=== PATIENT | female | born 1990 | race Caucasian/White ===

== ENCOUNTER 2016-11-13 08:31 | Day surgery (SDC) | payer BC ==
[~2016-11-13] VITALS: Ht 157.5 cm; Wt 72.3 kg
[2016-11-13 09:13] VITALS: BP 114/67
[2016-11-13 09:36] LABS: HEMATOCRIT 41.4 % (36.0-46.0); MCH 31.8 PG (29.0-34.0); MCHC 33.8 G/DL (30.0-36.0); MCV 94.1 FL (83-99); MEAN PLAT.VOLUME 10.1 uM^3 (9.5-12.4); PLATELET COUNT 234 K/uL (156-360); RBC DIS.WIDTH-CV 12.5 % (11.8-14.6); RBC DIS.WIDTH-SD 43.6 % (39-53); WHITE BLOOD COUNT 6.4 K/uL (4.1-10.2)
[2016-11-13] MEDS ORDERED: VICODIN 5-3001 EACH PO (11:27)
[2016-11-13] MEDS ORDERED: MOTRIN800 MG PO (11:27)
[2016-11-13 12:53] VITALS: BP 117/85
[2016-11-13 13:41] VITALS: BP 113/69
== END 2016-11-13 13:44 | disposition home or self-care (01) ==
LOC: SDC 08:31
PROVIDERS: Obstetrics & Gynecology
PROC: 10D17ZZ Extraction of Products of Conception, Retained, Via Natural or Artificial Opening (ICD-10-PCS; principal; 2016-11-13)
DX: O02.1 Missed abortion (principal)
CPT/HCPCS: 85027; 86900; 86901; 88305; J1885; J2250; J3010

== ENCOUNTER 2017-09-18 10:40 | Outpatient (CLI) | payer OTHER ==
[~2017-09-18] VITALS: Ht 157.5 cm; Wt 94.8 kg
[~2017-09-18 10:40] MED LIST: MOTRIN800 MG PO; VICODIN 5-3001 EACH PO
[2017-09-18 10:59] VITALS: BP 122/68
[2017-09-18] MEDS ORDERED: PRENATAL TABLE1 EAC3 PO (11:13)
== END 2017-09-18 12:03 | disposition home or self-care (01) ==
LOC: LDRP-OP 10:40 → 2WEST 10:41 → LDRP-OP 10-24 10:17
DX: O47.1 False labor at or after 37 completed weeks of gestation (principal); Z3A.39 39 weeks gestation of pregnancy
CPT/HCPCS: 59025; G0378

== ENCOUNTER 2017-09-21 04:13 | Outpatient (CLI) | payer OTHER ==
[~2017-09-21 04:13] MED LIST changes: +PRENATAL TABLE1 EAC3 PO
[2017-09-21 04:15] VITALS: BP 114/67
[2017-09-21 06:17] VITALS: BP 124/71
[2017-09-21 06:58] VITALS: BP 122/68
[2017-09-21 08:46] VITALS: BP 123/77
[2017-09-22] MEDS ORDERED: IBUPROFEN800 MG PO (10:48)
== END 2017-09-21 09:53 | disposition home or self-care (01) ==
LOC: LDRP-OP 04:13 → 2WEST 04:14 → LDRP-OP 10-24 12:14
DX: O47.1 False labor at or after 37 completed weeks of gestation (principal); Z3A.39 39 weeks gestation of pregnancy
CPT/HCPCS: 59025; G0378

== ENCOUNTER 2017-09-22 06:47 | Inpatient (IN) | payer OTHER ==
[2017-09-22] VITALS (12 sets, daily range): BP systolic 106–173; BP diastolic 56–118
[~2017-09-22] VITALS: Ht 157.5 cm; Wt 95.0 kg
[2017-09-22 07:35] LABS: BASOPHIL (%) 0.3 % (0-1); EOSINOPHIL (%) 0.1 % (0-5); HEMOGLOBIN 13.8 G/DL (11.9-15.5); IMMATURE GRANULOCYTE (%) 0.7 % (0.0-0.7); LYMPHOCYTE (%) 11.1 % (15-42); LYMPHOCYTE COUNT 1.4 K/uL (1.0-2.8); MCH 32.2 PG (29.0-34.0); MCHC 34.5 G/DL (30.0-36.0); MCV 93.2 FL (83-99); MONOCYTE COUNT 0.4 K/uL (0-0.8); NEUTROPHIL (%) 84.8 % (45-76); NEUTROPHIL COUNT 10.9 K/uL (1.8-6.4); RBC DIS.WIDTH-CV 13.9 % (11.8-14.6); RBC DIS.WIDTH-SD 46.8 % (39-53); RED BLOOD COUNT 4.29 M/uL (3.80-5.20); WHITE BLOOD COUNT 12.9 K/uL (4.1-10.2)
[2017-09-22 08:12] LABS: PLAT.SUFFICIENCY ADEQUATE; PLATELET CLUMPS PRESENT - PLATELET COUNT APPEARS ADQ.; PLATELET COUNT UNABLE TO REPORT K/uL (156-360)
[2017-09-22 08:20] LABS: AMPHETAMINE NEGATIVE (500 ng/mL); COCAINE NEGATIVE (150 ng/mL); METHAMPHETAMINE NEGATIVE (500 ng/mL); OPIATES (MORPHINE) NEGATIVE (100 ng/mL); PHENCYCLIDINE NEGATIVE (25 ng/mL); THC CANNABINOIDS NEGATIVE (50 ng/mL)
[2017-09-22 08:21] LABS: BARBITURATES NEGATIVE (200 ng/mL); BENZODIAZEPINES NEGATIVE (150 ng/mL); BUPRENORPHINE NEGATIVE (10 ng/mL); METHADONE NEGATIVE (200 ng/mL); OXYCODONE NEGATIVE (100 ng/mL); PROPOXYPHENE NEGATIVE (300 ng/mL); TRICYCLIC ANTIDEPRESSANTS NEGATIVE (300 ng/mL)
[2017-09-22] MEDS ORDERED: IBUPROFEN800 MG PO (10:48)
[2017-09-22 10:58] LABS: HEMATOCRIT 34.6 % (36.0-46.0); MCV 95.8 FL (83-99)
[2017-09-22 11:00] LABS: HEMOGLOBIN 11.6 G/DL (11.9-15.5)
[2017-09-23 07:03] LABS: BASOPHIL (%) 0.2 % (0-1); EOSINOPHIL (%) 0.2 % (0-5); HEMATOCRIT 23.2 % (36.0-46.0); IMMATURE GRANULOCYTE (%) 0.4 % (0.0-0.7); LYMPHOCYTE (%) 20.3 % (15-42); LYMPHOCYTE COUNT 2.6 K/uL (1.0-2.8); MCH 32.1 PG (29.0-34.0); MCHC 33.2 G/DL (30.0-36.0); MCV 96.7 FL (83-99); MONOCYTE (%) 6.3 % (3-12); MONOCYTE COUNT 0.8 K/uL (0-0.8); NEUTROPHIL (%) 72.6 % (45-76); NEUTROPHIL COUNT 9.2 K/uL (1.8-6.4); RBC DIS.WIDTH-CV 14.3 % (11.8-14.6); RBC DIS.WIDTH-SD 49.5 % (39-53); WHITE BLOOD COUNT 12.6 K/uL (4.1-10.2)
[2017-09-23 07:05] LABS: HEMOGLOBIN 7.7 G/DL (11.9-15.5)
[2017-09-23 07:30] VITALS: BP 130/67
[2017-09-23 14:37] VITALS: BP 122/68
[2017-09-24 09:06] VITALS: BP 131/75
== END 2017-09-24 13:10 | disposition home or self-care (01) | DRG 774 ==
LOC: LDRP-OP 06:47 → 2WEST 06:49 → LDRP-OP 10-24 10:03
PROVIDERS: Midwife; Nurse Practitioner
PROC: 0HQ9XZZ Repair Perineum Skin, External Approach (ICD-10-PCS; principal; 2017-09-22)
PROC: 10E0XZZ Delivery of Products of Conception, External Approach (ICD-10-PCS; principal; 2017-09-22)
DX: O99.824 Streptococcus B carrier state complicating childbirth (principal); Z3A.36 36 weeks gestation of pregnancy; Z37.0 Single live birth; O72.1 Other immediate postpartum hemorrhage; O26.03 Excessive weight gain in pregnancy, third trimester; Z68.38 Body mass index [BMI] 38.0-38.9, adult
CPT/HCPCS: 59025; 85014; 85018; 85025; G0378; J2210; J2590; J7120